=== PATIENT | male | born 1985 | race Caucasian/White ===

== ENCOUNTER 2020-05-23 13:40 | Emergency (ER) | payer OTHER, SELFPAY ==
--- NOTE | 2020-05-23 13:59 | HMH.EDUTC ---
[facility] [place]ression: Accidental bee sting Disposition: Home, Self-Care Condition on Discharge: Good Instructions: How to Care for an Insect Bite or Sting, Insect Bites and Stings Additional Instructions: Take the medications as directed. Keep the hand elevated as much time as possible to reduce swelling. Take benedryl as needed for itching. Follow up with your primary care physician. GO TO THE ER FOR ANY WORSENING SYMPTOMS OR CONCERNS Prescriptions: methylPREDNISolone [Medrol] 4 mg PO DIRECTED 6 Days #21 tab.[email or web address] Transmission Status: Received by [facility] Referrals: Sebastian Urban MD [Primary Care Provider] - Time of Disposition: 14:05 Medical Decision Making - Medical Records Medical records reviewed: No: I reviewed the patient's medical records. - Derrek Inquiry Pt receiving controlled substance: No Vital Signs: 05/23/20 14:04 05/23/20 14:10 Temperature 98.4 F 98.4 F Temperature Source Oral Pulse Rate 95 H Pulse Rate [Right Brachial] 95 H Respiratory Rate 14 14 Blood Pressure 139/109 H Blood Pressure [Right Arm] 139/109 H Blood Pressure Mean [Right Arm] 119 Blood Pressure Source [Right Arm] Automatic Cuff Blood Pressure Position [Right Arm] Sitting 02 Sat by Pulse Oximetry 98 Oxygen Delivery Method Room Air [facility] [place] - General Stated complaint: bee sting Time Seen by Provider: 05/23/20 13:59 - History of Present Illness Provider Complaint: He states that he was stung on his right smallest finger yesteday by a wasp. Since then he has had pain and swelling of the finger. He denies any other symptoms. He denies any mough swelling, cough, or chest pain. - Related Data Home Medications Medication Instructions Recorded Confirmed Atorvastatin Calcium [Lipitor 40mg 40 mg PO HS 05/23/20 05/23/20 Tab] Levothyroxine Sodium 50 mcg PO DAILY 05/23/20 05/23/20 [Levothyroxine 50mcg (0.05mg) Tab] lisinopriL [Lisinopril 10mg Tab] 10 mg PO DAILY 05/23/20 05/23/20 Previous Rx's Medication Instructions Recorded methylPREDNISolone [Medrol] 4 mg PO DIRECTED 6 Days #21 05/23/20 [email or web address] Allergies Allergy/AdvReac Type Severity Reaction Status Date / Time No Known Allergies Allergy Verified 05/23/20 14:08 [facility] History - Hepatitis A Screen Attestation statement:: This patient has been screened for Hepatitis A risk factors. I have reviewed the patient's past medical history: Yes ROS Obtained: Yes All systems reviewed & no additional complaints - Constitutional Constitutional: Denies chills, Denies fever(s), Denies poor appetite, Denies malaise - Eyes Eyes: Denies eye discharge - ENT Ears, Nose, Mouth, and Throat: Denies dizziness, Denies otalgia, Denies sore throat, Denies throat swelling - Cardiovascular Cardiovascular: Denies chest pain - Respiratory Respiratory: No chest congestion, No cough - Integumentary/Breasts Skin/Breast: Reports as per HPI Physical Exam - General General appearance: alert, in no apparent distress - Head Head exam: atraumatic, normocephalic, normal inspection - Eye Eye exam: Present: normal appearance, PERRL, EOMI - ENT ENT exam: Present: normal exam, normal oropharynx, mucous membranes moist, TM's normal bilaterally, normal external ear exam - Neck Neck exam: Present: normal inspection, full ROM, trachea midline. Absent: meningismus, lymphadenopathy - Chest Chest inspection: Present: normal inspection, symmetric chest wall rise. Absent: tenderness - Respiratory Respiratory exam: Present: normal lung sounds bilaterally. Absent: respiratory distress - Cardiovascular Cardiovascular exam: Present: regular rate, normal rhythm. Absent: JVD - Abdominal Exam Abdominal exam: Present: soft, normal bowel sounds. Absent: distention, tenderness, guarding - Extremities Exam Extremities exam: Present: normal inspection, full ROM, normal capillary refill. A
[2020-05-23 14:04] VITALS: BP 139/109; PULSE 95; RESP 14; TEMP 36.9; O2SAT 98; BMI 31.6
[2020-05-23 14:10] VITALS: BP 139/109; PULSE 95; RESP 14; TEMP 36.9; O2SAT 98
== END 2020-05-23 14:14 | disposition home or self-care (01) ==
PROVIDERS: Emergency Provider Nurse Practitioner Family; PCP Family Medicine
DX: S60.466A Insect bite (nonvenomous) of right little finger, initial encounter (principal); T63.441A Toxic effect of venom of bees, accidental (unintentional), initial encounter
CPT/HCPCS: 99201

== ENCOUNTER 2020-10-17 15:13 | Emergency (ER) | payer OTHER, SELFPAY ==
[2020-10-17 15:20] VITALS: BP 140/96; PULSE 89; RESP 19; TEMP 37; O2SAT 98; BMI 29.0
[2020-10-17 15:35] VITALS: BP 140/96; PULSE 89; RESP 19; TEMP 37; O2SAT 98
--- NOTE | 2020-10-17 15:36 | HMH.EDUTC ---
[facility] [place]: Exposure to COVID-19 virus Disposition: Home, Self-Care Condition on Discharge: Good Instructions: DI for COVID-19 (Suspected or Confirmed ), Coronavirus Disease 2019, Preventing the Spread of Coronavirus Discharge Instructions Additional Instructions: *Monitor Temp, Over the counter Motrin or Tylenol as directed/as needed Tylenol every 4 hours and Motrin every 6 hours (as long as your family doctor has told you that you can take it) for fever or pain. and straight to ER if unable to lower temp less than 101.0 after medication given Follow up IMMEDIATELY for new or worsening symptoms or no Noticeable improvement over the next 48-72 hours. 911 for difficulty breathing or swallowing You were tested for today for COVID19 your test result should be back in the next 24-48 hours, you may call to the [facility] to see if your test results are back in the next 48 hours [phone] [facility] hours are 9am-9pm You was given a handout with instructions for Self Quarantine and Self isolation for while you wait on test results and what to do if they are positive If you are positive the Health Dept will be contacting you also Referrals: Albert Dinh MD [Primary Care Provider] - As needed Forms: Work/School Release Time of Disposition: 15:37 Medical Decision Making - Derrek Inquiry Pt receiving controlled substance: No Derrek was queried for this patient: No Vital Signs: 10/17/20 15:20 Temperature 98.6 F Temperature Source Oral Pulse Rate [Right Brachial] 89 Respiratory Rate 19 Blood Pressure [Right Arm] 140/96 H Blood Pressure Mean [Right Arm] 110 Blood Pressure Source [Right Arm] Automatic Cuff Blood Pressure Position [Right Arm] Sitting 02 Sat by Pulse Oximetry 98 Oxygen Delivery Method Room Air Orders (Tests/Meds): ORDERS Category Date Time Status Covid-19 Nasal PCR ([facility] [place]) Routine Lab 10/17/20 15:26 [place] [facility] [place] - General Stated complaint: covid test Time Seen by Provider: 10/17/20 15:36 Mode of Arrival: Ambulatory Source of Information: Patient Limitations: No Limitations Description of Symptoms (Recalled from Triage Doc. by RN): COVID TEST D/T EXPOSURE. DENIES SYMPTOMS HEENT Symptoms (Recalled from RN notes): No Resp Symptoms (Recalled from RN notes): No Skin Symptoms (Recalled from RN notes): No MS Symptoms (Recalled from RN notes): No Functional Status (Recalled from RN notes): wnl - History of Present Illness Provider Complaint: Patient states that he has been on Quarantine due to being positive for COVID and he has not had any symptoms States that he has to get tested and have a negative test before he can go back to work on Wednesday - Related Data Home Medications Medication Instructions Recorded Confirmed Atorvastatin Calcium [Lipitor 40mg 40 mg PO HS 05/23/20 05/23/20 Tab] Levothyroxine Sodium 50 mcg PO DAILY 05/23/20 05/23/20 [Levothyroxine 50mcg (0.05mg) Tab] lisinopriL [Lisinopril 10mg Tab] 10 mg PO DAILY 05/23/20 05/23/20 Previous Rx's Medication Instructions Recorded methylPREDNISolone [Medrol] 4 mg PO DIRECTED 6 Days #21 05/23/20 [email or web address] Allergies Allergy/AdvReac Type Severity Reaction Status Date / Time No Known Allergies Allergy Verified 05/23/20 14:08 - Worker's Comp Is this a Worker's Comp case?: No [facility] [place] History - Hepatitis A Screen Drug use history?: No High risk sexual behaviors?: No History of sexually transmitted infection?: No Currently employed?: No Childcare worker?: No Do you have indoor plumbing?: Yes Do you have electricity?: Yes Attestation statement:: This patient has been screened for Hepatitis A risk factors. I have reviewed the patient's past medical history: Yes - Social History Alcohol Intake: never Occupational Status: other ROS Obtained: Yes All systems reviewed & no additional complaints, Yes Systems reviewed as appropriate & no additional complaints -
== END 2020-10-17 15:39 | disposition home or self-care (01) ==
PROVIDERS: Emergency Provider Nurse Practitioner; PCP Family Medicine
DX: Z20.822 Contact with and (suspected) exposure to COVID-19 (principal)
CPT/HCPCS: 99202; G0463; U0003

== ENCOUNTER → 2021-06-19 15:32 | Outpatient (CLI) | payer OTHER, SELFPAY ==
[2021-06-21 20:14] LABS: H. pylori Breath Test Negative (Negative)
== END ==
PROVIDERS: Visit Provider Physician Assistant
DX: R10.13 Epigastric pain (principal)
CPT/HCPCS: 83013

== ENCOUNTER 2022-03-04 23:44 | Emergency (ER) | payer OTHER, SELFPAY ==
--- NOTE | 2022-03-04 23:40 | ECG_ITS ---
APPROVED REPORT Exam: Resting ECG HR:115 bpm ECG Measurements Heart Rate 115 AXES LA 198 P 49 QRSd 89 QRS 31 QT 409 T 42 QTc 477 Conclusion SINUS TACHYCARDIA NONSPECIFIC T-WAVE ABNORMALITY ABNORMAL RHYTHM ECG UNCONFIRMED REPORT Electronically signed by : Fer Grewal MD 03/05/2022 09:23:51
[2022-03-04 23:45] VITALS: BMI 34.2
[2022-03-04 23:50] VITALS: BP 160/105; PULSE 134; RESP 18; TEMP 36.9; O2SAT 99; BMI 34.2
--- NOTE | 2022-03-04 23:54 | PC.NURSE ---
Patient c/o chest pain and centralized back pain for prior 30-35 minutes. MD notified. EKG reviewed by MD. Advised to give 324mg po aspirin, 20mg famotidine, 10mg reglan and 1000ml 0.9%NaCl and order labs and xray.
[2022-03-05] VITALS: BP 128/88; PULSE 110; RESP 19; O2SAT 97
--- NOTE | 2022-03-05 | XR_ITS ---
PROCEDURE INFORMATION: Exam: XR Chest Exam date and time: 03/05/2022 12:02 AM Age: 36 years old Clinical indication: Sternal or substernal pain; Additional info: Cp TECHNIQUE: Imaging protocol: Radiologic exam of the chest. Views: 2 views. COMPARISON: No relevant prior studies available. FINDINGS: Lungs: Unremarkable. No consolidation. Pleural spaces: Unremarkable. No pleural effusion. No pneumothorax. Heart/Mediastinum: Unremarkable. No cardiomegaly. Bones/joints: Unremarkable. IMPRESSION: No acute findings.
[2022-03-05 00:04] LABS: Basophils # 0.3 K/mm3 (0-0.2); Basophils % 2.5 % (0.1-2.0); Eosinophils # 0.4 K/mm3 (0.0-0.4); Eosinophils % 2.7 % (0.1-12.0); Hematocrit 48.7 % (42.0-52.0); Lymphocytes # 4.6 K/mm3 (0.7-4.5); Lymphocytes % 35.4 % (10-50); Mean Corpuscular HGB Conc 32.8 g/dL (31.8-35.4); Mean Corpuscular Hemoglobin 31.6 pg (27.0-31.2); Mean Corpuscular Volume 96.3 fl (80-94); Mean Platelet Volume 7.5 fl (7.4-10.4); Monocytes # 0.6 K/mm3 (0.1-1.0); Monocytes % 4.2 % (1.7-9.3); Neutrophils # 7.2 K/mm3 (1.8-7.8); Neutrophils % 55.2 % (37.0-80.0); Platelet Count 316 K/mm3 (142-424); Red Blood Count 5.06 M/mm3 (4.60-6.20); Red Cell Distribution Width 13.9 % (11.5-17.5)
[2022-03-05 00:08] LABS: Alanine Aminotransferase 43 U/L (12-78); Albumin Level 4.4 g/dl (3.5-5.0); Albumin/Globulin Ratio 1.3 (1.1-1.8); Alkaline Phosphatase 100 U/L (38-126); Amylase 64 U/L (30-110); Anion Gap 11.6 mEq/L (5-15); Anion Gap 11.8 mEq/L (5-15); Aspartate Amino Transferase 39 U/L (17-59); Blood Urea Nitrogen 12 mg/dl (9-20); Calcium 9.6 mg/dl (8.4-10.2); Calcium 9.7 mg/dl (8.4-10.2); Carbon Dioxide 29 mmol/L (22.0-30.0); Chloride 102 mmol/L (98-107); Chloride 103 mmol/L (98-107); Creatinine Clearance Estimated 169 mL/min (50-200); Creatinine Clearance Estimated 187 mL/min (50-200); Estimated Glomerular Filt Rate 84 ml/min (>60); Estimated Glomerular Filt Rate 95 ml/min (>60); GFR (African American) 102 ML/MIN (>60); GFR (African American) 115 ML/MIN (>60); Globulin 3.3 g/dL (1.3-3.2); Glucose 155 mg/dl (74-100); Glucose 159 mg/dl (74-100); Lipase 145 U/L (23-300); Potassium 3.6 mmoL/L (3.5-5.1); Potassium 3.8 mmoL/L (3.5-5.1); Sodium 139 mmol/L (136-145); Sodium 140 mmol/L (136-145); Total Protein,Serum 7.7 g/dl (6.3-8.2)
--- NOTE | 2022-03-05 00:09 | PC.NURSE ---
Pt gone to RAD for XRAY
[2022-03-05 00:11] LABS: Bilirubin,Total < 0.1 mg/dl (0.2-1.3)
[2022-03-05 00:12] LABS: C-Reactive Protein 5.4 mg/L (0-4)
--- NOTE | 2022-03-05 00:12 | PC.NURSE ---
Pt back from RAD
[2022-03-05 00:23] LABS: Microscopic, Urine URINE MICROSCOPIC (MICROSCOPIC)
[2022-03-05 00:24] LABS: Troponin I < 0.01 ng/ml (0.00-0.034)
[2022-03-05 00:26] LABS: Procalcitonin 0.042 ng/mL (0.0-2.0); T4 (Thyroxine) 9.9 ug/dl (5.53-11.0)
[2022-03-05 00:30] VITALS: BP 123/82; PULSE 98; RESP 20; O2SAT 98
--- NOTE | 2022-03-05 00:37 | PC.NURSE ---
rounded on pt and pt pain has been relieved with meds per MAR
[2022-03-05 00:40] LABS: Thyroid Stimulating Hormone 6.23 uIU/mL (0.465-4.68)
[2022-03-05 00:52] LABS: Appearance,Urine CLEAR (Clear); Bilirubin,Urine Negative (Negative); Blood, Urine Negative (Negative); Color,Urine STRAW (Yellow); Glucose,Urine (UA) Negative (Negative); Ketones,Urine Negative (Negative); Leukocyte Esterase,Urine Negative (Negative); Nitrate,Urine Negative (Negative); Protein,Urine Negative (Negative); Specific Gravity, Urine <= 1.005 (1.005-1.030); Urobilinogen,Urine 0.2 EU/dl (0.2)
[2022-03-05 01:00] VITALS: BP 118/80; PULSE 98; RESP 21; O2SAT 95
--- NOTE | 2022-03-05 01:03 | HMH.EDCP ---
ED Disposition Clinical Impression: Chest pain Qualifiers: Chest pain type: precordial pain Qualified Code(s): R07.2 - Precordial pain Disposition: Home, Self-Care Condition on Discharge: Good Instructions: DI for Chest Pain Additional Instructions: see pcp for follow up Referrals: Caridad Shankar PA [Primary Care Provider] - - Critical Care Critical Care Time: No Attestation: On 03/04/22, the high probability of a clinically significant, sudden or life threatening deterioration of the following system(s) required my full and direct attention, intervention and personal management. The time I documented below is in addition to time spent performing reported procedures but includes the following listed in this critical care notation. Medical Decision Making - Medical Records Medical records reviewed: Yes: I reviewed the patient's medical records. - Derrek Inquiry Pt receiving controlled substance: No Vital Signs: 03/04/22 23:50 03/05/22 00:00 03/05/22 00:30 Temperature 98.4 F Temperature Source Oral Pulse Rate 110 H 98 H Pulse Rate [Apical] 134 H Respiratory Rate 18 19 20 Blood Pressure 128/88 123/82 Blood Pressure [Right Arm] 160/105 H Blood Pressure Mean 101 91 Blood Pressure Mean [Right Arm] 123 Blood Pressure Source [Right Arm] Automatic Cuff Blood Pressure Position [Right Arm] Sitting 02 Sat by Pulse Oximetry 99 97 98 Oxygen Delivery Method Room Air - Lab Data Lab results reviewed: Yes: I reviewed the patient's lab results. Lab Results 03/04/22 23:46: Sodium 139, Potassium 3.6, Chloride 102, Carbon Dioxide 29, Anion Gap 11.6, BUN 12, Creatinine 1.00, Estimated Creat Clear 169, Estimated GFR 84, Est GFR ( Amer) 102, Glucose 155 H, Calcium 9.6, Troponin I < 0.01, C-Reactive Protein 5.4 H, Amylase 64, TSH 6.23 H, Thyroxine (T4) 9.9 03/04/22 23:46: Sodium 140, Potassium 3.8, Chloride 103, Carbon Dioxide 29, Anion Gap 11.8, BUN 12, Creatinine 0.90, Estimated Creat Clear 187, Estimated GFR 95, Est GFR ( Amer) 115, Glucose 159 H, Calcium 9.7, Magnesium 2.0, Total Bilirubin < 0.1 L, AST 39, ALT 43, Alkaline Phosphatase 100, Total Protein 7.7, Albumin 4.4, Globulin 3.3 H, Albumin/Globulin Ratio 1.3, Lipase 145, Procalcitonin 0.042 03/04/22 23:46: WBC 13.0 H, RBC 5.06, Hgb 16.0, Hct 48.7, MCV 96.3 H, MCH 31.6 H, MCHC 32.8, RDW 13.9, Plt Count 316, MPV 7.5, Neut % (Auto) 55.2, Lymph % (Auto) 35.4, [place] % (Auto) 4.2, Eos % (Auto) 2.7, Baso % (Auto) 2.5 H, Neut # (Auto) 7.2, Lymph # (Auto) 4.6 H, [place] # (Auto) 0.6, Eos # (Auto) 0.4, Baso # (Auto) 0.3 H 03/05/22 00:08: Urine Color Straw, Urine Appearance Clear, Urine pH 6.0, Ur Specific [place] <= 1.005, Urine Protein Negative, Urine Glucose (UA) Negative, Urine Ketones Negative, Urine Blood Negative, Urine Nitrate Negative, Urine Bilirubin Negative, Urine Urobilinogen 0.2, Ur Leukocyte Esterase Negative Result diagrams: 03/04/22 23:46 03/04/22 23:46 Orders (Tests/Meds): ED MEDICATIONS Generic Name Dose Route Start Last Admin Trade Name Freq PRN Reason Stop Dose Admin Sodium Chloride 1,000 mls @ 999 mls/hr 03/04/22 23:45 03/04/22 23:51 Sod Chlor 0.9% 1000ml Bag IV 03/05/22 00:45 999 mls/hr .Q1H1M ADEBAYO Administration Sodium Chloride 8 ml 03/04/22 23:46 Sodium Chloride 0.9% 10ml Vial IV 04/03/22 23:45 NEEDED PRN dilute pepcid Discontinued Medications Generic Name Dose Route Start Last Admin Trade Name Freq PRN Reason Stop Dose Admin Aspirin 324 mg 03/04/22 23:46 03/04/22 23:51 Aspirin 81mg Chewable Tablet PO 03/04/22 23:47 324 mg ONCE ONE Administration Famotidine 20 mg 03/04/22 23:46 03/04/22 23:51 Famotidine 20mg/2ml Vial IV 03/04/22 23:47 20 mg ONCE ONE Administration Metoclopramide HCl 10 mg 03/04/22 23:46 03/04/22 23:51 Metoclopramide Hcl 10mg/2ml Vial IVP 03/04/22 23:47 10 mg ONCE ONE Administration Nitroglycerin 0.4 mg 03/04/22 23:47 0
--- NOTE | 2022-03-05 01:14 | PC.NURSE ---
at updating pt on POC
[2022-03-05 01:23] VITALS: BP 118/80; PULSE 98; RESP 18; TEMP 36.8; O2SAT 98
[2022-03-05 01:37] LABS: RBC,Urine Occasional #/hpf (0-3); Squamous Epithelial Cell,Urine Occasional #/hpf (0-5)
[2022-03-05 02:11] LABS: Erythrocyte Sedimentation Rate 46 mm/hr (0-15)
== END 2022-03-05 01:25 | disposition home or self-care (01) ==
PROVIDERS: Emergency Provider Emergency Medicine; PCP Physician Assistant
DX: R07.2 Precordial pain (principal); Z79.899 Other long term (current) drug therapy
CPT/HCPCS: 71046; 80048; 80053; 81001; 82150; 83690; 83735; 84145; 84436; 84443; 84484; 85025; 85651; 86140; 93005; 96365; 96375; 99284

== ENCOUNTER 2022-04-16 19:07 | Emergency (ER) | payer OTHER, SELFPAY ==
[2022-04-16] VITALS (8 sets, daily range): BP systolic 128–156; BP diastolic 74–108; PULSE 106–127; RESP 16–18; TEMP 36.9; O2SAT 95–97; BMI 34.2
--- NOTE | 2022-04-16 19:14 | ECG_ITS ---
APPROVED REPORT Exam: Resting ECG HR:126 bpm ECG Measurements Heart Rate 126 AXES OR 198 P 50 QRSd 104 QRS 19 QT 404 T 39 QTc 478 Conclusion SINUS TACHYCARDIA ABNORMAL RHYTHM ECG UNCONFIRMED REPORT Electronically signed by : Fer Grewal MD 04/18/2022 08:05:48
[2022-04-16 19:22] LABS: POC Glucose,Bedside 105 (70-110)
--- NOTE | 2022-04-16 19:33 | CT_ITS ---
PROCEDURE INFORMATION: Exam: CT Head Without Contrast Exam date and time: 04/16/2022 7:38 PM Age: 36 years old Clinical indication: Numbness / parasthesia; Left; Additional info: Numbness and tingling left side face/ head pain TECHNIQUE: Imaging protocol: Computed tomography of the head without contrast. Radiation optimization: All CT scans at this facility use at least one of these dose optimization techniques: automated exposure control; mA and/or kV adjustment per patient size (includes targeted exams where dose is matched to clinical indication); or iterative reconstruction. COMPARISON: No relevant prior studies available. FINDINGS: Brain: Normal. No hemorrhage. Unremarkable white matter. No mass effect. Cerebral ventricles: No ventriculomegaly. Paranasal sinuses: Visualized sinuses are unremarkable. No fluid levels. Mastoid air cells: Visualized mastoid air cells are well aerated. Bones/joints: Unremarkable. No acute fracture. Soft tissues: Unremarkable. IMPRESSION: No acute intracranial abnormality.
--- NOTE | 2022-04-16 19:41 | PC.NURSE ---
PT gone to RAD
--- NOTE | 2022-04-16 19:46 | PC.NURSE ---
Pt back from RAD
[2022-04-16 20:07] LABS: Basophils # 0.1 K/mm3 (0-0.2); Basophils % 0.8 % (0.1-2.0); Eosinophils # 0.2 K/mm3 (0.0-0.4); Eosinophils % 1.5 % (0.1-12.0); Hematocrit 48.6 % (42.0-52.0); Hemoglobin 15.5 g/dL (14.1-18.0); Lymphocytes # 3.4 K/mm3 (0.7-4.5); Lymphocytes % 29.1 % (10-50); Mean Corpuscular Hemoglobin 31.1 pg (27.0-31.2); Mean Corpuscular Volume 97.2 fl (80-94); Mean Platelet Volume 7.5 fl (7.4-10.4); Monocytes # 0.5 K/mm3 (0.1-1.0); Monocytes % 4.3 % (1.7-9.3); Neutrophils # 7.5 K/mm3 (1.8-7.8); Neutrophils % 64.2 % (37.0-80.0); Platelet Count 317 K/mm3 (142-424); Red Blood Count 4.99 M/mm3 (4.60-6.20); White Blood Count 11.6 K/mm3 (4.8-10.8)
--- NOTE | 2022-04-16 20:09 | HMH.EDNEU ---
Discharge Plan Disposition Patient Disposition: Home, Self-Care Chief Complaint: Neuro Symptoms/Deficit Prescriptions Prescriptions: No Action atorvastatin 40 MG tablet 40 mg PO HS levothyroxine [Synthroid] 50 MCG tablet 50 mcg PO DAILY lisinopril 10 MG tablet 10 mg PO DAILY metoclopramide HCl [Reglan] 5 mg tablet 5 mg PO TID Label Comments: TAKE ONE TABLET BY MOUTH TWICE DAILY (BEFORE MEALS AND AT BEDTIME) cyclobenzaprine 5 mg tablet 5 mg PO TID pantoprazole [Protonix] 40 MG tablet,delayed release (DR/EC) 40 mg PO BID Referrals Referrals: Riley Newell MD [Primary Care Provider] - Enter time for follow up Clinical Impressions Clinical Impression: Transient cerebral ischemia, Hypertension, Obesity (BMI 30-39.9) Instructions Patient Instructions: DI for Transient Ischemic Attack Discharge ED Provider: Tung Donaldson Neuro HPI General Chief Complaint: Neuro Symptoms/Deficit Stated Complaint: left side of face numbness,all over body Time Seen by Provider: 04/16/22 20:09 Mode of Arrival: Ambulatory Source of Information: Patient Limitations: No Limitations Description of Symptoms (Recalled from ER Triage Doc. by RN): PT REPORTS INTERMITT LEFT HEAD AND NECK PAIN, NUMBNESS AND TINGLING TO LEFT SIDE OF BODY; CURRENTLY ONLY IN HIS FACE. NIH 0 AT TIME OF TRIAGE History of Present Illness HPI Narrative: pt with 2 hr episode of tingling in upper and lower ext - dayana on lt - no motor or visual loss and no speech sx- last week had dizzyness - no fever/rash or trauma Onset (ago): hour(s) Location: left face, left arm and left leg History of same: No Severity: moderate Quality: tingling Context: sudden onset On Anticoagulants: No Associated symptoms: denies other symptoms Treatments Prior to Arrival: none Related Data Home Medications Medication Instructions Recorded Confirmed atorvastatin 40 mg tablet 40 mg PO HS Cholesterol 05/23/20 04/16/22 levothyroxine 50 mcg tablet 50 mcg PO DAILY THYROID 05/23/20 04/16/22 (Synthroid) lisinopril 10 mg tablet 10 mg PO DAILY Hypertension 05/23/20 04/16/22 pantoprazole 40 mg tablet,delayed 40 mg PO BID GERD 03/04/22 04/16/22 release (Protonix) cyclobenzaprine 5 mg tablet 5 mg PO TID MUSCLE PAIN 04/16/22 04/16/22 metoclopramide HCl 5 mg tablet 5 mg PO TID GERD 04/16/22 04/16/22 (Reglan) Allergies Allergy/AdvReac Type Severity Reaction Status Date / Time No Known Allergies Allergy Verified 05/23/20 14:08 Stroke Alert/NIH Score LOC Stroke Alert: No Location of Alert: Emergency Department Level of Consciousness: Alert LOC Questions: Answers both correctly LOC Commands: Obeys both correctly Facial/Visual Best Gaze: Normal Visual: No visual loss Facial Palsy: Normal Motor Motor Response, Left Arm: No drift/Amputation/Fused Motor Response, Right Arm: No drift/Amputation/Fused Motor Response, Left Leg: No drift/Amputation/Fused Motor Response, Right Leg: No drift/Amputation/Fused Sensory/Language Limb Ataxia: Absent Sensory: Normal Best Language: No aphasia Dysarthria: Normal speech, Intubated or Barrier present NIH Score Stroke Risk Score: 0 PFSH PFSH Social History Smoking Status: Current every day smoker alcohol intake: never current occupational status: other ROS Obtained: Yes Systems reviewed as appropriate & no additional complaints except as documented Constitutional Constitutional: Denies headache(s) ENT Ears, Nose, Mouth, and Throat: Denies headache(s) Neurologic Neurologic: Reports as per HPI, Denies focal weakness, Denies headache(s) and Reports paresthesias Physical Exam General General appearance: alert and obese Head Head exam: normocephalic Eye Eye exam: Present normal appearance, PERRL and EOMI; Absent nystagmus ENT ENT exam: Present normal oropharynx Neck Neck exam: Present full ROM and trachea midline Respiratory Respiratory exam: Present normal lung sounds bilat
--- NOTE | 2022-04-16 20:10 | CT_ITS ---
PROCEDURE INFORMATION: Exam: CTA Neck With Contrast Exam date and time: 04/16/2022 8:32 PM Age: 36 years old Clinical indication: Patient HX: States started as gen. Facial numbness that progressed to only left sided facial numbness; Additional info: Numbnesss TECHNIQUE: Imaging protocol: Computed tomographic angiography of the neck with contrast. 3D rendering (Not supervised by radiologist): MIP and/or 3D reconstructed images were created by the technologist. Radiation optimization: All CT scans at this facility use at least one of these dose optimization techniques: automated exposure control; mA and/or kV adjustment per patient size (includes targeted exams where dose is matched to clinical indication); or iterative reconstruction. Contrast material: ISOVUE; Contrast volume: 100 ml; Contrast route: INTRA-ARTERIAL (ARTERIAL); COMPARISON: CT HEAD/BRAIN WO CON 04/16/2022 7:38 PM FINDINGS: Right common carotid artery: No stenosis. No dissection or occlusion. Right internal carotid artery: No stenosis of the extracranial segment. No dissection or occlusion. Right external carotid artery: No occlusion or stenosis of the origin. Left common carotid artery: No stenosis. No dissection or occlusion. Left internal carotid artery: No stenosis of the extracranial segment. No dissection or occlusion. Left external carotid artery: No occlusion or stenosis of the origin. Right vertebral artery: No stenosis. No dissection or occlusion. Left vertebral artery: No stenosis. No dissection or occlusion. Soft tissues: Normal. No significant soft tissue swelling. Bones/joints: No acute fracture. IMPRESSION: No stenosis or occlusion. REFERENCES: NASCET CRITERIA. The degree of internal carotid artery stenosis is based on NASCET criteria. Normal is no stenosis. Mild is less than 50% stenosis. Moderate is 50-69% stenosis. Severe is 70% to 99% stenosis. Total occlusion is no detectable patent lumen.
--- NOTE | 2022-04-16 20:10 | CT_ITS ---
PROCEDURE INFORMATION: Exam: CTA Head With Contrast, Arteriography Exam date and time: 04/16/2022 8:32 PM Age: 36 years old Clinical indication: Patient HX: States started as gen. Facial numbness that progressed to only left sided facial numbness; Additional info: Numbnesssnumbness TECHNIQUE: Imaging protocol: Computed tomographic angiography of the head with contrast. Exam focused on the arteries. 3D rendering (Not supervised by radiologist): MIP and/or 3D reconstructed images were created by the technologist. Radiation optimization: All CT scans at this facility use at least one of these dose optimization techniques: automated exposure control; mA and/or kV adjustment per patient size (includes targeted exams where dose is matched to clinical indication); or iterative reconstruction. Contrast material: ISOVUE; Contrast volume: 100 ml; Contrast route: INTRAVENOUS (IV); COMPARISON: CT HEAD/BRAIN WO CON 04/16/2022 7:38 PM FINDINGS: ANTERIOR CIRCULATION: Right internal carotid artery: The visualized distal right ICA cervical segment is unremarkable. The right ICA petrous segment is unremarkable. Right ICA cavernous segment is unremarkable. The right ICA supraclinoid segment is unremarkable. Right middle cerebral artery: Unremarkable. No occlusion or significant stenosis. No aneurysm. Right anterior cerebral artery: Unremarkable. No occlusion or significant stenosis. No aneurysm. The anterior communicating artery is unremarkable. Left internal carotid artery: The distal left ICA cervical segment demonstrates moderate tortuosity near the skull base, without stenosis. The left ICA petrous segment is unremarkable. Left ICA cavernous segment is unremarkable. The left ICA supraclinoid segment is unremarkable. Left middle cerebral artery: Unremarkable. No occlusion or significant stenosis. No aneurysm. Left anterior cerebral artery: Unremarkable. No occlusion or significant stenosis. No aneurysm. POSTERIOR CIRCULATION: Right vertebral artery: Dominant right vertebral artery. No occlusion or significant stenosis. No aneurysm. Left vertebral artery: Unremarkable. No occlusion or significant stenosis. No aneurysm. 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 No occluded vascular segments or significant stenosis are identified. No aneurysm/pseudoaneurysm. This configuration can be associated with ischemic events, and given the presenting symptoms, consider MRI of the brain without and with contrast to exclude acute ischemic changes at the brainstem/trigeminal nuclei. Right posterior cerebral artery: Unremarkable. No occlusion or significant stenosis. No aneurysm. Left posterior cerebral artery: Unremarkable. No occlusion or significant stenosis. No aneurysm. Cavernous Sinus: The dural venous sinuses and major cortical veins enhance appropriately without evidence of thrombosis. Brain: No enhancing brain lesions or intra-axial vascular malformations are identified. Cerebral ventricles: No ventriculomegaly. Bones/joints: Unremarkable. No acute fracture. Soft tissues: Unremarkable. IMPRESSION: 1. No evidence of large vessel occlusion. No evidence of arterial dissection or aneurysm/pseudoaneurysm. 2. Fenestration of the proximal basilar artery. This represents an anatomic variant but is associated with increased risk of ischemia. Consider MRI of the brain without and with contrast to exclude acute ischemic changes at the brainstem/trigeminal nuclei. 3. These findings initiated a critical results reporting process. An addendu
[2022-04-16 20:15] LABS: Microscopic, Urine URINE MICROSCOPIC (MICROSCOPIC)
[2022-04-16 20:17] LABS: Appearance,Urine CLEAR (Clear); Bilirubin,Urine Negative (Negative); Blood, Urine Negative (Negative); Color,Urine YELLOW (Yellow); Glucose,Urine (UA) Negative (Negative); Ketones,Urine Negative (Negative); Leukocyte Esterase,Urine Negative (Negative); Nitrate,Urine Negative (Negative); Protein,Urine Negative (Negative); Specific Gravity, Urine <= 1.005 (1.005-1.030); Urobilinogen,Urine 0.2 EU/dl (0.2)
[2022-04-16 20:19] LABS: Alanine Aminotransferase 36 U/L (12-78); Albumin Level 4.6 g/dl (3.5-5.0); Albumin/Globulin Ratio 1.4 (1.1-1.8); Alkaline Phosphatase 115 U/L (38-126); Anion Gap 12.4 mEq/L (5-15); Aspartate Amino Transferase 36 U/L (17-59); Bilirubin,Total 0.3 mg/dl (0.2-1.3); Blood Urea Nitrogen 8 mg/dl (9-20); Calcium 9.6 mg/dl (8.4-10.2); Carbon Dioxide 24 mmol/L (22.0-30.0); Chloride 103 mmol/L (98-107); Creatinine Clearance Estimated 169 mL/min (50-200); Estimated Glomerular Filt Rate 84 ml/min (>60); GFR (African American) 102 ML/MIN (>60); Globulin 3.2 g/dL (1.3-3.2); Glucose 101 mg/dl (74-100); Magnesium 1.7 mg/dl (1.6-2.3); Potassium 3.4 mmoL/L (3.5-5.1); Sodium 136 mmol/L (136-145); Total Protein,Serum 7.8 g/dl (6.3-8.2)
[2022-04-16 20:24] LABS: C-Reactive Protein 6.2 mg/L (0-4)
[2022-04-16 20:37] LABS: Troponin I < 0.01 ng/ml (0.00-0.034)
[2022-04-16 20:39] LABS: RBC,Urine Occasional #/hpf (0-3); Squamous Epithelial Cell,Urine Occasional #/hpf (0-5); WBC,Urine Occasional #/hpf (0-3)
[2022-04-16 20:39] LABS: Procalcitonin 0.045 ng/mL (0.0-2.0); T4 (Thyroxine) 11.4 ug/dl (5.53-11.0)
[2022-04-16 20:44] LABS: Erythrocyte Sedimentation Rate 25 mm/hr (0-15)
--- NOTE | 2022-04-16 21:38 | PC.NURSE ---
Rounded on pt. Pt updated on POC. No needs or complaints voiced.
--- NOTE | 2022-04-16 21:52 | PC.NURSE ---
PT UPDATED. NO COMPLAINTS VOICED. NIH REMAINS 0- FAMILY REMAINS AT BEDSIDE.
[2022-04-16 22:09] LABS: INR 1.02 (0.9-1.1); Prothrombin Time 11.5 seconds (10.1-12.5)
[2022-04-18 09:12] LABS: Homocyst(e)ine 10.8 umol/L (0.0-14.5)
[2022-04-20 18:09] LABS: Anti-Thrombin III Antigen 114 % (72-124); Antithrombin Activity 121 % (75-135); Factor VIII Activity 46 % (56-140); Protein C Functional 120 % (73-180); Protein S, Free 135 % (61-136); Protein S, Total 138 % (60-150); Protein S-Functional 120 % (63-140)
[2022-04-25 05:13] LABS: Protein C Antigen 111 % (60-150)
== END 2022-04-16 22:29 | disposition home or self-care (01) ==
PROVIDERS: Emergency Medicine; Emergency Provider Emergency Medicine; PCP Family Medicine
DX: G45.9 Transient cerebral ischemic attack, unspecified (principal); I10 Essential (primary) hypertension; Z72.0 Tobacco use; E66.9 Obesity, unspecified; Z68.34 Body mass index [BMI] 34.0-34.9, adult; Z79.899 Other long term (current) drug therapy
CPT/HCPCS: 70450; 70496; 70498; 80053; 81001; 81241; 82962; 83090; 83735; 84145; 84436; 84443; 84484; 85025; 85240; 85300; 85301; 85302; 85305; 85306; 85610; 85651; 86140; 86148; 93005; 96365; 99285; Q9967

== ENCOUNTER 2022-04-18 07:42 | Emergency (ER) | payer OTHER, SELFPAY ==
[2022-04-18] VITALS (7 sets, daily range): BP systolic 124–157; BP diastolic 80–97; PULSE 90–115; RESP 16–20; TEMP 36.8; O2SAT 97–98; BMI 34.2
--- NOTE | 2022-04-18 08:09 | XR_ITS ---
PROCEDURE INFORMATION: Exam: XR Cervical Spine Exam date and time: 04/18/2022 8:14 AM Age: 36 years old Clinical indication: Neck pain; Additional info: Pain-- no injury TECHNIQUE: Imaging protocol: Radiologic exam of the cervical spine. Views: 2 or 3 views. COMPARISON: CT ANGIO NECK 04/16/2022 8:32 PM FINDINGS: Bones/joints: Normal. No acute fracture. Normal alignment. Soft tissues: Unremarkable. IMPRESSION: No acute findings.
--- NOTE | 2022-04-18 08:09 | PC.NURSE ---
pt to xr at this time
--- NOTE | 2022-04-18 08:32 | HMH.EDNECK ---
Discharge Plan Disposition Patient Disposition: Home, Self-Care Chief Complaint: Recheck/Abnormal Lab/Rx Prescriptions Prescriptions: No Action atorvastatin 40 MG tablet 40 mg PO HS levothyroxine [Synthroid] 50 MCG tablet 50 mcg PO DAILY lisinopril 10 MG tablet 10 mg PO DAILY metoclopramide HCl [Reglan] 5 mg tablet 5 mg PO TID Label Comments: TAKE ONE TABLET BY MOUTH TWICE DAILY (BEFORE MEALS AND AT BEDTIME) cyclobenzaprine 5 mg tablet 5 mg PO TID pantoprazole [Protonix] 40 MG tablet,delayed release (DR/EC) 40 mg PO BID Referrals Follow up/Referrals: Sebastian Urban MD [Primary Care Provider] - Enter time for follow up Clinical Impressions Clinical Impression: Facial paresthesia, Cervicalgia Instructions Patient Instructions: DI for Cervical Radiculopathy, DI for Anxiety -- Adult Discharge ED Provider: Myles Potter Neck Pain/Injury HPI General Chief Complaint: Recheck/Abnormal Lab/Rx Stated Complaint: left arm numbness Time Seen by Provider: 04/18/22 08:09 Source of Information: Patient Limitations: No Limitations Description of Symptoms (Recalled from ER Triage Doc. by RN): pt to ed c/o hypertension and right arm tingling. pt states he is treated for hypertension and has started some new medications. pt reports waking up and noticing the sympoms and checked his bp and it was high. History of Present Illness HPI Narrative: reports elevated blood pressure, lleft cervical neck pain, left facial paresthesia (resolved), left upper arm cold feeling, says he is taking his blood pressure 2x/hour and thinks it may be causing cold feeling, pcp rx muscle relaxer for neck pain, also reports anxiety elevated Onset (ago): day(s) Severity: mild Quality: aching Duration: intermittent Relieving factors: none Exacerbating factors: movement of neck Context: unknown Treatments prior to arrival: ibuprofen Related Data Home Medications Medication Instructions Recorded Confirmed atorvastatin 40 mg tablet 40 mg PO HS Cholesterol 05/23/20 04/16/22 levothyroxine 50 mcg tablet 50 mcg PO DAILY THYROID 05/23/20 04/16/22 (Synthroid) lisinopril 10 mg tablet 10 mg PO DAILY Hypertension 05/23/20 04/16/22 pantoprazole 40 mg tablet,delayed 40 mg PO BID GERD 03/04/22 04/16/22 release (Protonix) cyclobenzaprine 5 mg tablet 5 mg PO TID MUSCLE PAIN 04/16/22 04/16/22 metoclopramide HCl 5 mg tablet 5 mg PO TID GERD 04/16/22 04/16/22 (Reglan) Allergies Allergy/AdvReac Type Severity Reaction Status Date / Time No Known Allergies Allergy Verified 05/23/20 14:08 [facility] Social History Smoking Status: Current every day smoker alcohol intake: never current occupational status: other ROS Obtained: Yes All systems reviewed & no additional complaints except as documented Cardiovascular Cardiovascular: Denies chest pain, Denies chest pain at rest, Denies chest pain with activity, Denies diaphoresis, Denies dyspnea, Denies dyspnea on exertion, Denies edema and Denies palpitations Respiratory Respiratory: Denies dyspnea and Denies dyspnea on exertion Endocrine Endocrine: Denies palpitations Physical Exam General General appearance: alert and in no apparent distress Head Head exam: atraumatic and normocephalic ENT ENT exam: Present normal exam, TM's normal bilaterally and normal external ear exam Neck Neck exam: Present normal inspection, full ROM and trachea midline; Absent tenderness, meningismus, lymphadenopathy or thyromegaly Respiratory Respiratory exam: Absent respiratory distress, wheezes or stridor Cardiovascular Cardiovascular exam: Present regular rate and normal rhythm; Absent tachycardia Back Exam Back exam: Present other (left paraspinal cspine spasm) Neurological Exam Neurological exam: Present alert, oriented X3, CN II-XII intact and other (no focal def); Absent motor sensory deficit Psychiatric
--- NOTE | 2022-04-18 08:42 | ECG_ITS ---
APPROVED REPORT Exam: Resting ECG HR:102 bpm ECG Measurements Heart Rate 102 AXES IL 196 P 44 QRSd 98 QRS 9 QT 322 T 37 QTc 381 Conclusion SINUS TACHYCARDIA NONSPECIFIC T-WAVE ABNORMALITY ABNORMAL RHYTHM ECG UNCONFIRMED REPORT Electronically signed by : Fer Grewal MD 04/20/2022 20:13:28
--- NOTE | 2022-04-18 09:57 | PC.NURSE ---
SO at the bedside with pt. rounded at this time. no needs voiced
== END 2022-04-18 10:29 | disposition home or self-care (01) ==
PROVIDERS: Emergency Provider Emergency Medicine; PCP Family Medicine
DX: R20.2 Paresthesia of skin (principal); M54.2 Cervicalgia; Z79.899 Other long term (current) drug therapy; I10 Essential (primary) hypertension; E78.5 Hyperlipidemia, unspecified; E07.9 Disorder of thyroid, unspecified; K21.9 Gastro-esophageal reflux disease without esophagitis; Z72.0 Tobacco use
CPT/HCPCS: 72040; 93005; 99283

== ENCOUNTER → 2022-04-27 11:25 | Outpatient (CLI) | payer OTHER, SELFPAY | PROVIDERS: PCP Family Medicine; Visit Provider Internal Medicine | DX: Z01.812 Encounter for preprocedural laboratory examination (principal); Z20.822 Contact with and (suspected) exposure to COVID-19; Z13.810 Encounter for screening for upper gastrointestinal disorder | CPT/HCPCS: C9803; U0003; U0005 ==

== ENCOUNTER 2022-04-29 10:27 | Day surgery (SDC) | payer OTHER, SELFPAY ==
[2022-04-24 10:59] VITALS: BMI 34.2
[2022-04-29 10:56] VITALS: BP 152/86; PULSE 102; RESP 16; TEMP 36.5; O2SAT 99
[2022-04-29 12:15] VITALS: O2SAT 97
[2022-04-29 12:21] VITALS: BP 119/71; PULSE 93; RESP 16; TEMP 36.4; O2SAT 98
--- NOTE | 2022-04-29 12:21 | HMH.SCOPE ---
Procedure: Date: 04/29/22 Patient Date of :: 1985 Procedure Performed:: EGD Indications:: Epigastric abdominal pain, GERD Performing Provider:: Ji Soler MD Referring Provider:: Sebastian Urban MD Sedation:: See RN records Procedure:: The gastroscope was gently passed through the incisoral orifice into the oral cavity and under direct visualization the esophagus was intubated. The endoscope was passed down the esophagus, through the stomach, and into the duodenum. Color, texture, mucosa, and anatomy of the esophagus, stomach, and duodenum were carefully examined with the scope. Findings:: Oropharynx: normal Esophagus: normal EG Junction: intact at 40 cm Cardia: normal Fundus: normal Body: Gastritis. Biopsies obtained Antrum: Erosive gastritis, biopsies obtained Duodenal bulb: normal Duodenum (second and third portion): normal. Biopsies obtained Impression: Distal erosive gastritis Recommendations:: Await pathology results Avoid NSAIDs Continue pantoprazole 40 mg once daliy Complications:: None Estimated blood obtained (mL): 0
[2022-04-29 12:31] VITALS: BP 138/74; PULSE 81; RESP 18; TEMP 36.4; O2SAT 97
[2022-04-29 12:41] VITALS: BP 134/78; PULSE 84; RESP 18; TEMP 36.4; O2SAT 97
--- NOTE | 2022-04-29 12:44 | P.PN_ITS ---
PFSH PFS Medical History Hyperlipidemia Hypothyroid No significant past medical history Surgical History History of appendectomy History of inguinal hernia repair Family History Other No significant family history Social History Smoking Status: Current every day smoker tobacco type: cigarettes packs per day: 1 alcohol intake: never substance use type: denies use current occupational status: other Travel in the last 8 weeks: None [facility] Anesthesia Checklist Patient Identification Patient Identification: Arm Band Structural Data Admitted From: Home Planned Operative Procedure/s: egd Consent for Planned Operative Procedure(s) Verified: Yes Verified Documents: Surgical Consent and History and Physical NPO Status Verified Time NPO: 00:00 Additional verifications Anesthesia Reactions: No Airway Assessment C-Spine Mobility Assessed: Yes TMJ Mobility Assessed: Yes Dentition: Poor Dentition Neurological Assessment Level of Consciousness: Awake and Alert Anesthesia Plan Anesthesia Risk discussed: Yes Anesthesia Plan: Verified ASA Class: II Anesthesia Type: MAC
[2022-04-29 13:12] VITALS: BP 138/82; PULSE 84; RESP 18; TEMP 36.4; O2SAT 97
== END 2022-04-29 13:12 | disposition home or self-care (01) ==
PROVIDERS: PCP Family Medicine; Visit Provider Internal Medicine
PROC: 0DJ08ZZ Inspection of Upper Intestinal Tract, Via Natural or Artificial Opening Endoscopic (ICD-10-PCS; CPT 43235; principal; 2022-04-29 11:30)
DX: K21.00 Gastro-esophageal reflux disease with esophagitis, without bleeding (principal); R10.13 Epigastric pain; K29.60 Other gastritis without bleeding; Z79.899 Other long term (current) drug therapy; Z72.0 Tobacco use
CPT/HCPCS: 43239

== ENCOUNTER → 2022-05-01 07:44 | Outpatient (CLI) | payer OTHER, SELFPAY ==
--- NOTE | 2022-05-01 07:48 | US_ITS ---
FINAL REPORT CLINICAL HISTORY: ABDOMINAL BRUIT, FINDINGS: Limited sonographic images were obtained of the abdomen to evaluate the abdominal aorta and iliac arteries. The abdominal aorta measures up to 1.9 cm in greatest dimension. Mild plaque is noted. The iliac arteries are within normal limits. IMPRESSION: No evidence of abdominal aortic aneurysm. Reviewed, Interpreted and Dictated by Spike Miranda III, MD Transcribed by Ayala Carpio Authenticated and [facility]
== END ==
PROVIDERS: PCP Family Medicine; Visit Provider Family Medicine
DX: R09.89 Other specified symptoms and signs involving the circulatory and respiratory systems (principal)
CPT/HCPCS: 76770

== ENCOUNTER 2023-01-31 16:30 | Emergency (ER) | payer OTHER, SELFPAY ==
[2023-01-31 16:50] VITALS: BP 157/91; PULSE 68; RESP 18; TEMP 36.8; O2SAT 100; BMI 33.9
--- NOTE | 2023-01-31 17:33 | EXP.UTC ---
Discharge Plan Disposition Patient Disposition: Home, Self-Care Condition: Good Prescriptions Prescriptions: New cephalexin [cephalexin] 500 mg tablet 500 mg PO BID 7 Days Qty: 14 0RF No Action atorvastatin 40 MG tablet 40 mg PO HS levothyroxine [Synthroid] 50 MCG tablet 50 mcg PO DAILY metoclopramide HCl [Reglan] 5 mg tablet 5 mg PO BID Label Comments: TAKE ONE TABLET BY MOUTH TWICE DAILY (BEFORE MEALS AND AT BEDTIME) cyclobenzaprine 5 mg tablet 5 mg PO TID pantoprazole [Protonix] 40 MG tablet,delayed release (DR/EC) 40 mg PO BID irbesartan 150 mg Tablet 150 mg PO DAILY Referrals Follow up/Referrals: Sebastian Urban MD [Primary Care Provider] - See instructions Clinical Impressions Clinical Impression: Laceration Instructions Patient Instructions: DI for Laceration Repair-Skin Closure Strips, DI for Laceration Repair-Skin Glue Discharge ED Provider: Conor ([facility])Talita [facility] HPI General Stated complaint: AO 01/31 left pointer finger lac Mode of Arrival: Ambulatory Source of Information: Patient Limitations: No Limitations Time Seen by Provider: 01/31/23 17:33 Description of Symptoms (Recalled from Triage Doc. by RN): PATIENT C/O LACERATION TO LEFT INDEX FINGER WHILE CUTTING POTATOES TODAY. TDAP IS NOT UP TO DATE HEENT Symptoms (Recalled from RN notes): No Resp Symptoms (Recalled from RN notes): No Skin Symptoms (Recalled from RN notes): Yes MS Symptoms (Recalled from RN notes): No Functional Status (Recalled from RN notes): WNL History of Present Illness Provider Complaint: 37 yr old male presents for laceration to left index finger from cut potatoes, dtap not up to date Related Data Home Medications Medication Instructions Recorded Confirmed atorvastatin 40 mg tablet 40 mg PO HS Cholesterol 05/23/20 04/29/22 levothyroxine 50 mcg tablet 50 mcg PO DAILY THYROID 05/23/20 04/29/22 (Synthroid) pantoprazole 40 mg tablet,delayed 40 mg PO BID GERD 03/04/22 04/29/22 release (Protonix) cyclobenzaprine 5 mg tablet 5 mg PO TID MUSCLE PAIN 04/16/22 04/29/22 metoclopramide HCl 5 mg tablet 5 mg PO BID GERD 04/16/22 04/29/22 (Reglan) irbesartan 150 mg tablet 150 mg PO DAILY htn 04/29/22 04/29/22 Previous Rx's Medication Instructions Recorded cephalexin 500 mg tablet 500 mg PO BID 7 days #14 tabs 01/31/23 Allergies Allergy/AdvReac Type Severity Reaction Status Date / Time No Known Allergies Allergy Verified 04/29/22 10:55 Worker's Comp Is this a Worker's Comp case?: No [facility] Disclaimer: The information contained in this section may have been updated after the patient was seen, as this information can be updated by other users. 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) Smoking Status: Current every day smoker tobacco type: cigarettes packs per day: 1 alcohol intake: never substance use type: denies use current occupational status: other Travel in the last 8 weeks: None ROS Obtained: Yes All systems reviewed & no additional complaints except as documented Constitutional Constitutional: Reports system reviewed and no additional complaints, except as documented Eyes Eyes: Reports system reviewed and no additional complaints, except as documented ENT Ears, Nose, Mouth, and Throat: Reports system reviewed and no additional complaints, except as documented Cardiovascular Cardiovascular: Reports system reviewed and no additional complaints, except as documented Respiratory Respiratory: Reports system revi
[2023-01-31 17:36] VITALS: BP 157/91; PULSE 68; RESP 18; TEMP 36.8; O2SAT 100
== END 2023-01-31 17:43 | disposition home or self-care (01) ==
PROVIDERS: Emergency Provider Nurse Practitioner Family; PCP Family Medicine
DX: S61.211A Laceration without foreign body of left index finger without damage to nail, initial encounter (principal); F17.210 Nicotine dependence, cigarettes, uncomplicated; E03.9 Hypothyroidism, unspecified; E78.5 Hyperlipidemia, unspecified; W26.0XXA Contact with knife, initial encounter; Z23 Encounter for immunization
CPT/HCPCS: 12001; 90471; 90715; 96372; 99213; 99214; G0463

== ENCOUNTER → 2023-03-26 07:15 | Outpatient (CLI) | payer BC, SELFPAY ==
[2023-03-26 07:43] LABS: Basophils % 0.3 % (0.1-2.0); Eosinophils # 0.2 K/mm3 (0.0-0.4); Eosinophils % 2.4 % (0.1-12.0); Hemoglobin 15.2 g/dL (14.1-18.0); Lymphocytes % 33.2 % (10-50); Mean Corpuscular HGB Conc 33.8 g/dL (31.8-35.4); Mean Corpuscular Hemoglobin 30.7 pg (27.0-31.2); Mean Corpuscular Volume 90.8 fl (80-94); Mean Platelet Volume 7.5 fl (7.4-10.4); Monocytes # 0.4 K/mm3 (0.1-1.0); Monocytes % 4.8 % (1.7-9.3); Neutrophils # 5.3 K/mm3 (1.8-7.8); Neutrophils % 59.3 % (37.0-80.0); Platelet Count 270 K/mm3 (142-424); Red Blood Count 4.95 M/mm3 (4.60-6.20); Red Cell Distribution Width 13.7 % (11.5-17.5); White Blood Count 8.9 K/mm3 (4.8-10.8)
[2023-03-26 09:04] LABS: Chloride 108 mmol/L (98-107); Potassium 4.3 mmoL/L (3.5-5.1); Sodium 140 mmol/L (136-145)
[2023-03-26 09:06] LABS: Alanine Aminotransferase 36 U/L (12-78); Blood Urea Nitrogen 16 mg/dl (9-20); Estimated Glomerular Filt Rate 84 ml/min (>60); GFR (African American) 101 ML/MIN (>60)
[2023-03-26 09:07] LABS: Albumin Level 4.3 g/dl (3.5-5.0); Albumin/Globulin Ratio 1.7 (1.1-1.8); Alkaline Phosphatase 103 U/L (38-126); Anion Gap 13.3 mEq/L (5-15); Aspartate Amino Transferase 33 U/L (17-59); Bilirubin,Total 0.3 mg/dl (0.2-1.3); Calcium 9.4 mg/dl (8.4-10.2); Carbon Dioxide 23 mmol/L (22.0-30.0); Chol/HDL Ratio 7.5 (1-3.5); Cholesterol 188 mg/dl (140-200); Globulin 2.6 g/dL (1.3-3.2); Glucose 91 mg/dl (74-100); HDL Cholesterol 25 mg/dl (40-60); Total Protein,Serum 6.9 g/dl (6.3-8.2); Triglycerides 286 mg/dl (30-150); VLDL Cholesterol 57 mg/dL (0-40)
[2023-03-26 09:22] LABS: Free T4 (Free Thyroxine) 0.96 ng/dl (0.78-2.19)
[2023-03-26 12:36] LABS: Direct LDL Cholesterol 109.18 mg/dL (100-129)
[2023-03-26 12:48] LABS: Creatinine,Urine Random 201 mg/dL (Not Estab.); Microalbumin < 6.000 mg/L (0-16.7)
[2023-03-26 12:56] LABS: Thyroid Stimulating Hormone 2.63 uIU/mL (0.465-4.68)
== END ==
PROVIDERS: PCP Family Medicine; Visit Provider Family Medicine
DX: E03.9 Hypothyroidism, unspecified (principal); E78.5 Hyperlipidemia, unspecified; I10 Essential (primary) hypertension
CPT/HCPCS: 36415; 80053; 80061; 82043; 82570; 84439; 84443; 84550; 85025

== ENCOUNTER 2025-08-19 11:19 | Outpatient (CLI) | payer BC, SELFPAY ==
--- OUTSIDE RECORDS SUMMARY | 2025-08-19 11:22 | XMS_ITS | Clinical Summary ---
Author Organization [facility] [place] [address] Care Team Providers Care Tool Storage Attendant Name Role Phone Unavailable Primary Care Provider Unavailabl e Social History Tobacco Use Types Packs/Day Years Used Date Smoking Tobacco: Never Assessed Sex and Gender Information Value Date Recorded Sex Assigned at Not on file Legal Sex Male 9:12 PM EDT Gender Identity Not on file Sexual Orientation Not on file Plan of Treatment Health Maintenance Due Date Last Done Comments Annual Wellness Exam 12/08/1987 DTaP/TDaP/Td (1 - Tdap) 12/08/2003 Hepatitis B Vaccine (1 of 3 - 19+ 3-dose series) 12/08/2003 COVID-19 Vaccine (2024-2 6 season) 2025 Influenza Vaccine (#1) 2025 Meningococcal B Vaccine Aged Out No l onger eligible based on patient's age to complete this topic Pneumococcal Vaccine 0-49 Aged Out No longer eligible based on patient's age to complete this topic
--- OUTSIDE RECORDS SUMMARY | 2025-08-19 11:23 | XMS_ITS | Clinical Summary ---
Author Organization [facility] Address [address] [id number] Care Team Providers Care Geophysical Drafter Name Role Phone Pcp, No Primary Care Provider Unavailabl e Allergies No known active allergies Social History Tobacco Use Types Packs/Day Years Used Date Smoking Tobacco: Never Assessed Sex and Gender Information Value Date Recorded Sex Assigned at Not on file Legal Sex Male 8:34 PM EDT Gender Identity Not on file Sexual Orientation Not on file Last Filed Vital Signs Vital Sign Reading Time Taken Comments Blood Pressure 134/74 01/14/2022 10:23 PM EDT Pulse 107 01/14/2022 7:00 PM EDT Temperature 2.7 C (36.8 F) 01/14/2022 10:23 PM EDT Respiratory Rate 16 01/14/2022 10:23 PM EDT Oxygen Saturation 96% 01/14/2022 10:23 PM EDT Inhaled Oxygen Concentration - - Weight 118 kg (260 lb) 01/14/2022 5:22 PM EDT Height 185.4 cm (6' 1 ) 01/14/2022 5:22 PM EDT Body Mass Index 34.3 01/14/2022 5:22 PM EDT Plan of Treatment Health Maintenance Due Date Last Done Comments [facility]-Depression Screening 1985 [facility]-Infant/Child/Adol SDOH Screenings 1984 [facility]-Varicella Vaccines (1 of 2 - 13+ 2-dose series) 1997 [facility]- SDOH Screenings 2002 [facility]-Adult SDOH Screenings 2002 [facility]-DTaP,Tdap,and Td Vaccine s (1 - Tdap) 12/08/2003 [facility]-Hepatitis B Vaccines (1 of 3 - 19+ 3-dose series) 12/08/2003 [facility]-QISEH-19 Vaccine (1 - 20 25-26 season) 2025 [facility]-Influenza Vaccine (#1) 2025 [facility]-Zoster Vaccines (1 of 2) 2034 HPV Vaccines (No Doses Required) Completed [facility]-HIB Vaccines Aged Out No longer e ligible based on patient's age to complete this topic [facility]-Hepatitis A Vaccines Aged Out No longer eligible based on patient's age to complete this topic [facility]-IPV Vaccines Aged Out No longer e ligible based on patient's age to complete this topic [facility]-Pneumococcal Vaccine: Pediatrics (0 to 5 Years) and At-Risk Patients (6 to 49 Years) Aged Out No long er eligible based on patient's age to complete this topic [facility]-Rotavirus Vaccines Aged Out No lo nger eligible based on patient's age to complete this topic Insurance Care Teams Geophysical Drafter Relationship Specialty Start Date [place] [address] PCP - General Family Medicine 01/14/22
--- NOTE | 2025-08-19 11:25 | XR_ITS ---
PROCEDURE INFORMATION: Exam: XR Chest Exam date and time: 08/19/2025 11:35 AM Age: 39 years old Clinical indication: Cough and shortness of breath; Additional info: Chest congestion TECHNIQUE: Imaging protocol: Radiologic exam of the chest. Views: 2 views. COMPARISON: CR XR CHEST 2V 03/05/2022 12:02 AM FINDINGS: Lungs: Lungs are well aerated without a focal area of consolidation. Pleural spaces: Unremarkable. No pleural effusion. No pneumothorax. Heart/Mediastinum: Unremarkable. No cardiomegaly. Bones/joints: Unremarkable. IMPRESSION: Lungs are well aerated without a focal area of consolidation.
== END 2025-08-19 23:59 ==
PROVIDERS: PCP Family Medicine; Visit Provider Nurse Practitioner
DX: R09.89 Other specified symptoms and signs involving the circulatory and respiratory systems (principal); R05.9 Cough, unspecified; R06.02 Shortness of breath
CPT/HCPCS: 71046